=== PATIENT | male | born 1950 | race Caucasian/White ===

== ENCOUNTER 2017-01-05 10:58 | Emergency (ER) | payer OTHER ==
[~2017-01-05 10:58] MED LIST: LIPITOR20 M1 PO; LITHIUM 30300 MG/CAP PO; VERAPAMIL240 MG PO
[2017-01-05] MEDS ORDERED: ZITHROMAX Z PA250 MG PO (13:17)
[2017-01-05] MEDS ORDERED: KETOROLAC10 MG PO (13:17)
[2017-01-05 13:24] VITALS: BP 106/76
== END 2017-01-05 13:29 | disposition home or self-care (01) ==
LOC: ED 10:58
DX: R09.1 Pleurisy (principal)

== ENCOUNTER → 2020-01-13 | Outpatient (CLI) | payer MEDICARE, OTHER ==
[~2020-01-13] MED LIST changes: +KETOROLAC10 MG PO; +ZITHROMAX Z PA250 MG PO
== END ==
LOC: RAD 09:15
DX: S83.241A Other tear of medial meniscus, current injury, right knee, initial encounter (principal); M17.11 Unilateral primary osteoarthritis, right knee

== ENCOUNTER 2020-02-24 11:00 | Outpatient (RCR) | payer MEDICARE, OTHER | END 2020-02-24 11:30 | disposition home or self-care (01) | LOC: PT | DX: S83.206A Unspecified tear of unspecified meniscus, current injury, right knee, initial encounter (principal); Z98.890 Other specified postprocedural states ==

== ENCOUNTER → 2020-04-28 | Outpatient (CLI) | payer MEDICARE, OTHER | LOC: LAB 14:11 | PROVIDERS: Urology | DX: R97.20 Elevated prostate specific antigen [PSA] (principal) ==

== ENCOUNTER 2020-05-13 13:45 | Outpatient (RCR) | payer MEDICARE, OTHER | END 2020-05-13 14:30 | disposition still patient (30) | LOC: PT 13:45 | DX: M25.511 Pain in right shoulder (principal); M25.512 Pain in left shoulder ==

== ENCOUNTER → 2021-06-30 | Outpatient (CLI) | payer MEDICARE, OTHER ==
[2021-06-30 09:21] LABS: BASO # 0.03 K/mm3 (0.02-0.10); EOS # 0.12 K/mm3 (0.04-0.40); HEMATOCRIT 44.7 % (42.0-52.0); HEMOGLOBIN 14.9 g/dL (13.5-18.0); LYMPH# 1.42 K/mm3 (1.50-4.00); MEAN CELL VOLUME 98 fl (78-100); MEAN CORPUSCULAR HEMOGLOBIN 33 pg (27-31); MEAN CORPUSCULAR HGB CONC 33 g/dL (33-37); MEAN PLATELET VOLUME 10.4 fl (7.4-10.4); MONO # 0.63 K/mm3 (0.20-0.80); PLATELET COUNT 199 K/mm3 (130-400); RED BLOOD COUNT 4.57 M/mm3 (4.20-5.60); RED CELL DISTRIBUTION WIDTH 12.6 % (11.5-14.5)
[2021-06-30 09:32] LABS: ALBUMIN 4.1 g/dL (3.4-4.8); POTASSIUM 4.7 mmol/L (3.5-5.1)
[2021-06-30 09:33] LABS: CALCIUM 9.8 mg/dL (8.3-10.5)
[2021-06-30 09:34] LABS: TOTAL PROTEIN 6.4 g/dL (6.2-8.1)
[2021-06-30 09:36] LABS: TOTAL BILIRUBIN 0.9 mg/dL (0.2-1.2)
[2021-06-30 10:35] LABS: URINE APPEARANCE CLEAR; URINE BILIRUBIN NEGATIVE (NEGATIVE); URINE BLOOD NEGATIVE (NEGATIVE); URINE COLOR YELLOW; URINE GLUCOSE NEGATIVE (NEGATIVE); URINE KETONE NEGATIVE (NEGATIVE); URINE LEUKOCYTE ESTERASE NEGATIVE (NEGATIVE); URINE MUCUS PRESENT (NOT PRESENT); URINE NITRATE NEGATIVE (NEGATIVE); URINE PROTEIN(semi-quant) TRACE mg/dL (NEGATIVE); URINE UROBILINOGEN NORMAL (NORMAL)
== END ==
LOC: LAB 09:07
PROVIDERS: Family Medicine
DX: Z00.00 Encounter for general adult medical examination without abnormal findings (principal); Z12.5 Encounter for screening for malignant neoplasm of prostate; I25.118 Atherosclerotic heart disease of native coronary artery with other forms of angina pectoris; E78.5 Hyperlipidemia, unspecified; R97.20 Elevated prostate specific antigen [PSA]

== ENCOUNTER → 2022-10-17 | Outpatient (RCR) | payer MEDICARE, OTHER | LOC: PT | DX: Z98.890 Other specified postprocedural states (principal) ==

== ENCOUNTER 2022-11-15 08:03 | Outpatient (RCR) | payer MEDICARE, OTHER | END 2022-12-15 | disposition home or self-care (01) | LOC: PT | DX: Z96.652 Presence of left artificial knee joint (principal) ==